=== PATIENT | female | born 1980 | race Caucasian/White ===

== ENCOUNTER 2017-03-06 13:02 | Emergency (ER) | payer MEDICARE, OTHER, SELFPAY ==
[2017-03-06 14:18] LABS: UTC Influenza A Antigen Negative (Negative); UTC Influenza B Antigen Negative (Negative)
[2017-03-06 14:24] VITALS: BP 121/61; PULSE 78; RESP 20; TEMP 36.9; O2SAT 100; BMI 21.7
--- NOTE | 2017-03-06 14:41 | HMH.EDUTC ---
[facility] [place] Impression: Viral upper respiratory tract infection with cough Disposition: Home, Self-Care Condition on Discharge: Good Instructions: Common Cold, DI for Viral Upper Respiratory Infection -- Adult Additional Instructions: * Monitor Temp. Tylenol and/or Ibuprofen as needed. ER if fever is no less than 101 despite alternating Tylenol and Ibuprofen * Encourage fluids, water, Gatorade, powerade, pedialyte if infant/toddler/or child * Warm salt water gargles for throat irritation *Warm fluids *Sore throat lozenges *Sleep elevated *humidifier or vaporizer Lots of rest Increase fluids, water, Gatorade, powerade Follow up IMMEDIATELY for new or worsening of symptoms OR no noticeable improvement over the next 48-72 hours. 911 immediately for any life threatening symptoms such as chest pain or difficulty breathing Referrals: Ilia Sutton MD [Primary Care Provider] - Time of Disposition: 14:57 Medical Decision Making - Medical Records Medical records reviewed: Yes: I reviewed the patient's medical records. Vital Signs: 03/06/17 14:24 Temperature 98.4 F Temperature Source Temporal Artery Scan Pulse Rate [Right Brachial] 78 Respiratory Rate 20 Blood Pressure [Right Arm] 121/61 Blood Pressure Mean [Right Arm] 81 Blood Pressure Source [Right Arm] Automatic Cuff Blood Pressure Position [Right Arm] Sitting 02 Sat by Pulse Oximetry 100 Oxygen Delivery Method Room Air - Lab Data Lab Results 03/06/17 14:08: Influenza Type A Ag Negative, Influenza Type B Ag Negative - Herber Inquiry Pt receiving controlled substance: No Herber was queried for this patient: No [facility] [place] - General Stated complaint: fever cough Mode of Arrival: Family Vehicle Source of Information: Patient Limitations: No Limitations Description of Symptoms (Recalled from Triage Doc. by RN): PT HAS HAD COUGH,FEVER, CONGESTION. PT HAD LIQUID ASPIRIN AT 1100. HEENT Symptoms (Recalled from RN notes): No Resp Symptoms (Recalled from RN notes): Yes (COUGH, CONGESTION) Skin Symptoms (Recalled from RN notes): No MS Symptoms (Recalled from RN notes): No Functional Status (Recalled from RN notes): NA - History of Present Illness Provider Complaint: Mother states that child has been having fever and cough now since yesterday State that family member recently tested positive for the flu. State that she was worried with the upcoming weather that she would be flu positive and she could not get her here State that she has had low grade fever and she was afraid because she had a history of febrile seziures when she was younger and has a history of seizures so she wanted to get her checked for the flu - Related Data Home Medications Medication Instructions Recorded Confirmed Zonisamide [Zonisamide] 100 mg PO TID 03/06/17 03/06/17 Allergies Allergy/AdvReac Type Severity Reaction Status Date / Time No Known Allergies Allergy Verified 03/06/17 13:54 - Worker's Comp Is this a Worker's Comp case?: No [facility] History I have reviewed the patient's past medical history: Yes Medical History: Denies:: Cancer, Diabetes Mellitus Type 1, Diabetes Mellitus Type 2, MRSA Amputation: No - *Social History Smoking Status: Never smoker Alcohol Intake: never - Psychiatric History Expresses thoughts of harming self/others: None Suicide Plan Description: No Plan ROS Obtained: Yes All systems reviewed & no additional complaints - Constitutional Constitutional: Reports fever(s) - Respiratory Respiratory: Yes cough Physical Exam - General General appearance: alert, in no apparent distress - Expanded ENT Exam Comment: Throat mildly red, irritated no exudate - Respiratory Respiratory exam: Present: normal lung sounds bilaterally. Absent: respiratory distress - Cardiovascular Cardiovascular exam: Present: regular rate - Neurological Exam Neurological exam: Present: alert, oriented X3
--- NOTE | 2017-03-06 14:44 | ED_ITS ---
[facility] [place] [facility] [place] Clinical Impression: Viral upper respiratory tract infection with cough Disposition: Home, Self-Care Condition on Discharge: Good Instructions: Common Cold, DI for Viral Upper Respiratory Infection -- Adult Additional Instructions: * Monitor Temp. Tylenol and/or Ibuprofen as needed. ER if fever is no less than 101 despite alternating Tylenol and Ibuprofen * Encourage fluids, water, Gatorade, powerade, pedialyte if infant/toddler/or child * Warm salt water gargles for throat irritation *Warm fluids *Sore throat lozenges *Sleep elevated *humidifier or vaporizer Lots of rest Increase fluids, water, Gatorade, powerade Follow up IMMEDIATELY for new or worsening of symptoms OR no noticeable improvement over the next 48-72 hours. 911 immediately for any life threatening symptoms such as chest pain or difficulty breathing Referrals: Ilia Sutton MD [Primary Care Provider] - Time of Disposition: 14:57 Medical Decision Making - Medical Records Medical records reviewed: Yes: I reviewed the patient's medical records. Vital Signs: 03/06/17 14:24 Temperature 98.4 F Temperature Source Temporal Artery Scan Pulse Rate [Right Brachial] 78 Respiratory Rate 20 Blood Pressure [Right Arm] 121/61 Blood Pressure Mean [Right Arm] 81 Blood Pressure Source [Right Arm] Automatic Cuff Blood Pressure Position [Right Arm] Sitting 02 Sat by Pulse Oximetry 100 Oxygen Delivery Method Room Air - Lab Data Lab Results 03/06/17 14:08: Influenza Type A Ag Negative, Influenza Type B Ag Negative - Herber Inquiry Pt receiving controlled substance: No Herber was queried for this patient: No [facility] [facility] [place] - General Stated complaint: fever cough Mode of Arrival: Family Vehicle Source of Information: Patient Limitations: No Limitations Description of Symptoms (Recalled from Triage Doc. by RN): PT HAS HAD COUGH, FEVER, CONGESTION. PT HAD LIQUID ASPIRIN AT 1100. HEENT Symptoms (Recalled from RN notes): No Resp Symptoms (Recalled from RN notes): Yes (COUGH, CONGESTION) Skin Symptoms (Recalled from RN notes): No MS Symptoms (Recalled from RN notes): No Functional Status (Recalled from RN notes): NA - History of Present Illness Provider Complaint: Mother states that child has been having fever and cough now since yesterday State that family member recently tested positive for the flu. State that she was worried with the upcoming weather that she would be flu positive and she could not get her here State that she has had low grade fever and she was afraid because she had a history of febrile seziures when she was younger and has a history of seizures so she wanted to get her checked for the flu - Related Data Home Medications Medication Instructions Recorded Confirmed Zonisamide [Zonisamide] 100 mg PO TID 03/06/17 03/06/17 Allergies Allergy/AdvReac Type Severity Reaction Status Date / Time No Known Allergies Allergy Verified 03/06/17 13:54 - Worker's Comp Is this a Worker's Comp case?: No [facility] History I have reviewed the patient's past medical history: Yes Medical History: Denies:: Cancer, Diabetes Mellitus Type 1, Diabetes Mellitus Type 2, MRSA Amputation: No - *Social History Smoking Status: Never smoker Alcohol Intake: never - Psychiatric History Expresses thoughts of harming self/others: None Suicide Plan
== END 2017-03-06 15:14 | disposition home or self-care (01) ==
PROVIDERS: Emergency Provider Nurse Practitioner; PCP Family Medicine
DX: J06.9 Acute upper respiratory infection, unspecified (principal); Z79.899 Other long term (current) drug therapy
CPT/HCPCS: 87804; 99201

== ENCOUNTER → 2021-01-06 08:53 | Outpatient (CLI) | payer MEDICARE, OTHER, SELFPAY ==
[2021-01-06 09:49] LABS: Basophils # 0.1 K/mm3 (0-0.2); Basophils % 0.8 % (0.1-2.0); Eosinophils # 0.1 K/mm3 (0.0-0.4); Eosinophils % 0.9 % (0.1-12.0); Hematocrit 42.5 % (37.0-47.0); Hemoglobin 14.3 g/dL (12.2-16.2); Lymphocytes # 2.9 K/mm3 (0.7-4.5); Lymphocytes % 37.2 % (10-50); Mean Corpuscular HGB Conc 33.5 g/dL (31.8-35.4); Mean Corpuscular Hemoglobin 31.7 pg (27.0-31.2); Mean Corpuscular Volume 94.6 fl (81-99); Mean Platelet Volume 8.2 fl (7.4-10.4); Monocytes # 0.4 K/mm3 (0.1-1.0); Monocytes % 4.8 % (1.7-9.3); Neutrophils # 4.4 K/mm3 (1.8-7.8); Neutrophils % 56.3 % (37.0-80.0); Platelet Count 225 K/mm3 (142-424); Red Cell Distribution Width 12.2 % (11.5-17.5); White Blood Count 7.9 K/mm3 (4.8-10.8)
[2021-01-06 11:04] LABS: Alanine Aminotransferase 10 U/L (12-78); Albumin Level 4.5 g/dl (3.5-5.0); Albumin/Globulin Ratio 1.5 (1.1-1.8); Alkaline Phosphatase 64 U/L (38-126); Anion Gap 12.3 mEq/L (5-15); Aspartate Amino Transferase 20 U/L (14-36); Bilirubin,Total 0.3 mg/dl (0.2-1.3); Blood Urea Nitrogen 17 mg/dl (7-17); Calcium 9.7 mg/dl (8.4-10.2); Carbon Dioxide 25 mmol/L (22.0-30.0); Chloride 106 mmol/L (98-107); Cholesterol 222 mg/dl (140-200); Estimated Glomerular Filt Rate 62 ml/min (>60); GFR (African American) 75 ML/MIN (>60); Globulin 3.1 g/dL (1.3-3.2); Glucose 107 mg/dl (74-100); HDL Cholesterol 74 mg/dl (40-60); Potassium 4.3 mmoL/L (3.5-5.1); Sodium 139 mmol/L (136-145); Total Protein,Serum 7.6 g/dl (6.3-8.2); Triglycerides 159 mg/dl (30-150); VLDL Cholesterol 32 mg/dL (0-40)
[2021-01-06 11:15] LABS: Direct LDL Cholesterol 124.53 mg/dL (100-129)
[2021-01-06 11:20] LABS: 25-OH Vitamin D, Total 47.6 ng/mL (30-100)
[2021-01-06 11:35] LABS: Thyroid Stimulating Hormone 4.13 uIU/mL (0.465-4.68)
[2021-01-06 12:09] LABS: Vitamin B12 525 pg/mL (239-931)
[2021-01-06 12:19] LABS: Folate > 20.00 ng/mL
== END ==
PROVIDERS: Visit Provider Psychiatry & Neurology Neurology
DX: G40.219 Localization-related (focal) (partial) symptomatic epilepsy and epileptic syndromes with complex partial seizures, intractable, without status epilepticus (principal); R62.50 Unspecified lack of expected normal physiological development in childhood; R46.89 Other symptoms and signs involving appearance and behavior; Z79.899 Other long term (current) drug therapy
CPT/HCPCS: 36415; 80053; 80061; 82306; 82607; 82746; 84443; 85025

== ENCOUNTER 2021-12-11 10:13 | Emergency (ER) | payer MEDICARE, OTHER, SELFPAY ==
[2021-12-11 10:40] VITALS: BP 120/61; PULSE 102; RESP 16; TEMP 37.4; O2SAT 98; BMI 24.2
--- NOTE | 2021-12-11 10:43 | EXP.UTC ---
Discharge Plan Disposition Patient Disposition: Home, Self-Care Condition: Good Prescriptions Prescriptions: New azithromycin [Zithromax] 250 mg tablet 250 mg PO UD DOSE PK Qty: 6 0RF Rx Instructions: Take two (2) tablets today, then one (1) tablet days #2 thru #5 guaifenesin [Mucinex] 600 mg tablet extended release 12hr 600 - 1,200 mg PO BIDP PRN (Reason: Congestion) Qty: 30 0RF No Action zonisamide 100 MG capsule 100 mg PO TID Label Comments: Referrals Follow up/Referrals: Provider,Referral, MD [Primary Care Provider] - See instructions Clinical Impressions Clinical Impression: Sinusitis, Close exposure to COVID-19 virus Instructions Patient Instructions: Sinusitis, DI for Sinusitis, Preventing the Spread of Coronavirus Discharge Instructions Discharge ED Provider: Jesus Wagner [facility] [place] General Stated complaint: fever, congestion covid test Mode of Arrival: Ambulatory Source of Information: Patient Limitations: No Limitations Time Seen by Provider: 12/11/21 10:43 Description of Symptoms (Recalled from Triage Doc. by RN): pt comes in with c/o fever and congestion. symptoms ongoing for 2 days, last night symptoms got worse HEENT Symptoms (Recalled from RN notes): Yes Resp Symptoms (Recalled from RN notes): Yes Skin Symptoms (Recalled from RN notes): No MS Symptoms (Recalled from RN notes): No Functional Status (Recalled from RN notes): n/a History of Present Illness Provider Complaint: This patient is autistic. Her mother states that the patient has had sinus congestion, runny nose, sore throat and low grade fever since yesterday. Her father currently has covid-19 at home. Related Data Home Medications Medication Instructions Recorded Confirmed zonisamide 100 mg capsule 100 mg PO TID SEIZURES 03/06/17 03/06/17 Previous Rx's Medication Instructions Recorded azithromycin 250 mg tablet 250 mg PO UD DOSE PK #6 tabs 12/11/21 (Zithromax) guaifenesin 600 mg tablet, 600 - 1,200 mg PO BIDP PRN 12/11/21 extended release 12 hr (Mucinex) Congestion #30 tabs Allergies Allergy/AdvReac Type Severity Reaction Status Date / Time No Known Allergies Allergy Verified 12/11/21 10:43 Worker's Comp Is this a Worker's Comp case?: No PFSH PFSH Social History Smoking Status: Never smoker alcohol intake: never current occupational status: employed Travel in the last 8 weeks: None ROS Obtained: Yes All systems reviewed & no additional complaints except as documented Constitutional Constitutional: Reports chills and Reports fever(s) Eyes Eyes: Denies eye discharge ENT Ears, Nose, Mouth, and Throat: Reports as per HPI Cardiovascular Cardiovascular: Denies chest pain Respiratory Respiratory: Denies chest congestion and Reports cough Gastrointestinal Gastrointestingal: Reports nausea; Denies abdominal pain, constipation, cramping, diarrhea or vomiting Musculoskeletal Musculoskeletal: Denies arthralgias Integumentary/Breasts Skin/Breast: Denies rash Neurologic Neurologic: Denies paresthesias Physical Exam General General appearance: alert and in no apparent distress Head Head exam: atraumatic, normocephalic and normal inspection Eye Eye exam: Present normal appearance, PERRL and EOMI ENT ENT exam: Present normal exam, normal oropharynx, mucous membranes moist, TM's normal bilaterally and normal external ear exam Neck Neck exam: Present normal inspection, full ROM and trachea midline; Absent meningismus or lymphadenopathy Chest Chest inspection: Present normal inspection and symmetric chest wall rise; Absent tenderness Respiratory Respiratory exam: Present normal lung sounds bilaterally; Absent respiratory distress Cardiovascular Cardiovascular exam: Present regular rate and normal rhythm; Absent JVD Abdominal Exam Abdominal exam: Present soft and normal bowel sounds; Absent distention, tenderness or guarding Ex
[2021-12-11 11:20] VITALS: BP 120/61; PULSE 102; RESP 16; TEMP 37.4
== END 2021-12-11 11:24 | disposition home or self-care (01) ==
PROVIDERS: Emergency Provider Nurse Practitioner Family
DX: U07.1 COVID-19 (principal); R50.9 Fever, unspecified; R11.0 Nausea; R09.89 Other specified symptoms and signs involving the circulatory and respiratory systems
CPT/HCPCS: 99213; C9803; G0463; U0003; U0005

== ENCOUNTER 2022-02-02 11:51 | Emergency (ER) | payer MEDICARE, OTHER, SELFPAY ==
--- NOTE | 2022-02-02 13:38 | EXP.UTC ---
Discharge Plan Disposition Patient Disposition: Home, Self-Care Condition: Good Prescriptions Prescriptions: New ibuprofen [ibuprofen] 600 mg tablet 600 mg PO Q6HP PRN (Reason: Mild Pain) Qty: 30 0RF No Action azithromycin [Zithromax] 250 mg tablet 250 mg PO UD DOSE PK Qty: 6 0RF Rx Instructions: Take two (2) tablets today, then one (1) tablet days #2 thru #5 guaifenesin [Mucinex] 600 mg tablet extended release 12hr 600 - 1,200 mg PO BIDP PRN (Reason: Congestion) Qty: 30 0RF zonisamide 100 MG capsule 100 mg PO TID Label Comments: Referrals Follow up/Referrals: Yovani Riggs JR, MD [Physician] - See instructions Provider,MD Mary [Primary Care Provider] - See instructions Activity Restrictions/Add. Instructions Additional Instructions/Restrictions: Rest the extremity, Elevate the extremity as tolerated while you are resting. Take ibuprofen for pain. I sent in a prescription to your pharmacy. Follow up with Dr. Riggs (orthopedics). I put in a referral but you need to call his office and schedule an appointment. Follow up with your regular doctor. GO TO THE ER FOR ANY WORSENING SYMPTOMS Clinical Impressions Clinical Impression: Left leg pain Instructions Patient Instructions: DI for Leg Pain Discharge ED Provider: Jesus Wagner [facility] General Stated complaint: AO 01/26@home pain in Rt leg Time Seen by Provider: 02/02/22 13:38 History of Present Illness Provider Complaint: Her mother states that the patient has c/o right leg pain since yesterday. The patient has autism and she has been unable to tell exactly where she is hurting at. There is no known injury, but the patient is very active. She was chasing chickens before her symptoms began. She is walking well on the extremity. Related Data Home Medications Medication Instructions Recorded Confirmed zonisamide 100 mg capsule 100 mg PO TID SEIZURES 03/06/17 03/06/17 Previous Rx's Medication Instructions Recorded azithromycin 250 mg tablet 250 mg PO UD DOSE PK #6 tabs 12/11/21 (Zithromax) guaifenesin 600 mg tablet, 600 - 1,200 mg PO BIDP PRN 12/11/21 extended release 12 hr (Mucinex) Congestion #30 tabs ibuprofen 600 mg tablet 600 mg PO Q6HP PRN Mild Pain #30 02/02/22 tabs Allergies Allergy/AdvReac Type Severity Reaction Status Date / Time No Known Allergies Allergy Verified 02/02/22 13:41 [facility] Disclaimer: The information contained in this section may have been updated after the patient was seen, as this information can be updated by other users. Social History Smoking Status: Never smoker alcohol intake: never current occupational status: employed Travel in the last 8 weeks: None ROS Obtained: Yes All systems reviewed & no additional complaints except as documented Constitutional Constitutional: Denies chills and Denies fever(s) Integumentary/Breasts Skin/Breast: Denies redness, Denies rash and Denies wounds Neurologic Neurologic: Denies paresthesias Physical Exam General General appearance: alert and in no apparent distress Head Head exam: atraumatic, normocephalic and normal inspection Eye Eye exam: Present normal appearance, PERRL and EOMI ENT ENT exam: Present normal exam, normal oropharynx, mucous membranes moist, TM's normal bilaterally and normal external ear exam Neck Neck exam: Present normal inspection, full ROM and trachea midline; Absent meningismus or lymphadenopathy Chest Chest inspection: Present normal inspection and symmetric chest wall rise; Absent tenderness Respiratory Respiratory exam: Present normal lung sounds bilaterally; Absent respiratory distress Cardiovascular Cardiovascular exam: Present regular rate and normal rhythm; Absent JVD Abdominal Exam Abdominal exam: Present soft and normal bowel sounds; Absent distention, tenderness or guarding Extremities Exam Extremities ex
[2022-02-02 13:39] VITALS: BP 115/65; PULSE 65; RESP 16; TEMP 36.7; O2SAT 99; BMI 21.7
--- NOTE | 2022-02-02 13:41 | XR_ITS ---
FINAL REPORT CLINICAL HISTORY: pain in right thigh FINDINGS: RIGHT HIP WITH PELVIS There is no acute fracture or dislocation. The joint spaces are intact. There are no soft tissue abnormalities. IMPRESSION: No acute process. Reviewed, Interpreted and Dictated by Dominic Christina III, MD Transcribed by Urban Zhang Authenticated and [facility]
--- NOTE | 2022-02-02 13:42 | XR_ITS ---
FINAL REPORT CLINICAL HISTORY: pain in right thigh FINDINGS: RIGHT ANKLE: Three views of the right ankle were obtained. There is no acute fracture or dislocation. The joint spaces and mortise are intact. There is a small chronic calcification superior to the navicular. IMPRESSION: No acute process. Reviewed, Interpreted and Dictated by Dominic Christina III, MD Transcribed by Urban Zhang Authenticated and [facility]
--- NOTE | 2022-02-02 13:42 | XR_ITS ---
FINAL REPORT CLINICAL HISTORY: pain in right thigh FINDINGS: Two views of the right tibia-fibula demonstrate no acute fracture or dislocation. The joint spaces appear normal. The visualized bony structures are well aligned. No soft tissue abnormality is seen. IMPRESSION: No acute process. Reviewed, Interpreted and Dictated by Dominic Christina III, MD Transcribed by Urban Zhang Authenticated and . [facility]
--- NOTE | 2022-02-02 13:42 | XR_ITS ---
FINAL REPORT CLINICAL HISTORY: pain in right thigh FINDINGS: 3 views of the right foot were obtained. There is no acute fracture or dislocation. There is mild hallux valgus deformity. The joint spaces are intact. There is a small chronic calcification superior to the navicular. IMPRESSION: No acute process. Reviewed, Interpreted and Dictated by Dominic Christina III, MD Transcribed by Urban Zhang Authenticated and [facility]
--- NOTE | 2022-02-02 13:42 | XR_ITS ---
FINAL REPORT CLINICAL HISTORY: pain in right thigh FINDINGS: Multiple views of the right femur were obtained. There is no acute fracture or dislocation. Visualized joint spaces are intact. There is no acute soft tissue abnormality. IMPRESSION: No acute process. Reviewed, Interpreted and Dictated by Dominic Christina III, MD Transcribed by Urban Zhang Authenticated and [facility]
--- NOTE | 2022-02-02 13:52 | XR_ITS ---
FINAL REPORT CLINICAL HISTORY: injury, pain in right thigh FINDINGS: Three views of the right knee reveal no evidence of fracture or dislocation. The bony alignment is normal. The joint spaces are preserved. There is no evidence of joint effusion. No localized soft tissue abnormality is identified. IMPRESSION: No acute abnormality identified. Reviewed, Interpreted and Dictated by Dominic Christina III, MD Transcribed by An Ramirez Authenticated and [facility]
[2022-02-02 14:57] VITALS: BP 115/65; PULSE 65; RESP 16; TEMP 36.7
== END 2022-02-02 14:58 | disposition home or self-care (01) ==
PROVIDERS: Emergency Provider Nurse Practitioner Family
DX: M79.604 Pain in right leg
CPT/HCPCS: 73502; 73552; 73562; 73590; 73610; 73630; 99213; G0463

== ENCOUNTER 2024-03-06 14:35 | Outpatient (CLI) | payer MEDICARE, OTHER, SELFPAY ==
[2024-03-06 15:05] LABS: MANUAL DIFFERENTIAL MANUAL DIFFERENTIAL (MANUAL DIFF)
--- NOTE | 2024-03-06 15:07 | XR_ITS ---
FINAL REPORT CLINICAL HISTORY: Ankle pain COMPARISON: None FINDINGS: RIGHT ANKLE: Three views show no evidence of acute displaced fracture or dislocation of the visualized bony architecture. The joint spaces appear normal. IMPRESSION: Unremarkable exam. Reviewed, Interpreted and Dictated by Lotus Sneed MD Transcribed by Maria Del Carmen Smith Authenticated and [facility]
[2024-03-06 15:29] LABS: Basophils % 0.4 % (0.1-2.0); Eosinophils # 0.1 K/mm3 (0.0-0.4); Eosinophils % 0.8 % (0.1-12.0); Hematocrit 39.7 % (37.0-47.0); Hemoglobin 13.2 g/dL (12.2-16.2); Lymphocytes # 2.1 K/mm3 (0.7-4.5); Lymphocytes % 28.5 % (10-50); Mean Corpuscular HGB Conc 33.2 g/dL (31.8-35.4); Mean Corpuscular Hemoglobin 30.5 pg (27.0-31.2); Mean Corpuscular Volume 91.7 fl (81-99); Monocytes # 0.6 K/mm3 (0.1-1.0); Monocytes % 7.7 % (1.7-9.3); Neutrophils # 4.6 K/mm3 (1.8-7.8); Neutrophils % 62.3 % (37.0-80.0); Platelet Count 147 K/mm3 (142-424); Red Blood Count 4.33 M/mm3 (4.20-5.40); Red Cell Distribution Width 12.1 % (11.5-17.5); White Blood Count 7.3 K/mm3 (4.8-10.8)
[2024-03-06 15:44] LABS: Albumin Level 4.6 g/dl (3.5-5.0); Chloride 109 mmol/L (98-107); Potassium 4.4 mmoL/L (3.5-5.1); Sodium 140 mmol/L (136-145)
[2024-03-06 15:47] LABS: Alanine Aminotransferase 14 U/L (12-78); Albumin/Globulin Ratio 1.5 (1.1-1.8); Alkaline Phosphatase 60 U/L (38-126); Anion Gap 12.4 mEq/L (5-15); Aspartate Amino Transferase 21 U/L (14-36); Bilirubin,Total 0.4 mg/dl (0.2-1.3); Blood Urea Nitrogen 15 mg/dl (7-17); Calcium 9.7 mg/dl (8.4-10.2); Carbon Dioxide 23 mmol/L (22.0-30.0); Estimated Glomerular Filt Rate 79 ml/min (>60); GFR (African American) 95 ML/MIN (>60); Glucose 118 mg/dl (74-100); Total Protein,Serum 7.6 g/dl (6.3-8.2)
[2024-03-06 16:06] LABS: Lymphocytes % 37 % (10-50); Monocytes % 3 % (2-9); Neutrophils % 59 % (42-76); Platelet Estimate Normal; RBC Morphology Normal; Total Cells Counted 100
== END 2024-03-06 23:59 | disposition home or self-care (01) ==
LOC: LAB 14:38
PROVIDERS: PCP Family Medicine; Visit Provider Specialist
DX: R56.9 Unspecified convulsions (principal); M25.571 Pain in right ankle and joints of right foot
CPT/HCPCS: 36415; 73610; 80053; 80203; 85007; 85014; 85018; 85048; 85049

== ENCOUNTER 2024-03-08 11:07 | Outpatient (CLI) | payer MEDICARE, OTHER, SELFPAY ==
[2024-03-11 20:08] LABS: Zonisamide, Serum or Plasma 29.5 ug/mL (10.0-40.0)
== END 2024-03-08 23:59 | disposition home or self-care (01) ==
PROVIDERS: PCP Family Medicine; Visit Provider Specialist
DX: R56.9 Unspecified convulsions (principal)
CPT/HCPCS: 80203

== ENCOUNTER 2024-03-19 12:41 | Outpatient (CLI) | payer MEDICARE, OTHER, SELFPAY ==
--- NOTE | 2024-03-19 12:42 | MR_ITS ---
FINAL REPORT CLINICAL HISTORY: h/o Seizure FINDINGS: Multiplanar MR imaging of the brain was performed without and with contrast. There is no evidence of intracranial hemorrhage or mass. No abnormal extra-axial fluid collection is seen. The ventricular size is within normal limits. There is no evidence of shift of the midline structures. The posterior fossa and brainstem have an unremarkable appearance. The 7th and 8th nerve root complexes are intact. No area of abnormal restricted diffusion is identified. No abnormal contrast enhancement is seen. The paranasal sinuses demonstrate normal signal voids. IMPRESSION: No acute intracranial abnormality identified. Reviewed, Interpreted and Dictated by Eliot Gnadhi MD Transcribed by Ariane Torrez Authenticated and [facility]
[2024-03-19] MEDS: SODIUM CHLORIDE 0.9% 10ML SYR (RAD ONLY) 10 ML IV (13:55)
[2024-03-19] MEDS: GADOTERIDOL INJ 10ML SYRINGE 10 ML IV (13:55)
== END 2024-03-19 23:59 | disposition home or self-care (01) ==
LOC: RAD 12:42
PROVIDERS: PCP Family Medicine; Visit Provider Specialist
DX: R56.9 Unspecified convulsions (principal)
CPT/HCPCS: 70553; A9576

== ENCOUNTER 2024-06-27 11:27 | Emergency (ER) | payer MEDICARE, OTHER, SELFPAY ==
[2024-06-27] VITALS (8 sets, daily range): BP systolic 92–121; BP diastolic 65–88; PULSE 66–86; RESP 14–17; TEMP 36.9–37.1; O2SAT 96–99; BMI 24.2
--- NOTE | 2024-06-27 11:32 | ECG_ITS ---
APPROVED REPORT Exam: Resting ECG HR:81 bpm ECG Measurements Heart Rate 81 AXES DC 151 P 70 QRSd 97 QRS 82 QT 349 T -24 QTc 387 Conclusion SINUS RHYTHM WITH SINUS ARRHYTHMIA MODERATE T-WAVE ABNORMALITY, CONSIDER ANTEROLATERAL ISCHEMIA [-0.1+ mV T-WAVE IN V3-V6] MODERATE T-WAVE ABNORMALITY, CONSIDER INFERIOR ISCHEMIA [-0.1+ mV T-WAVE IN II/aVF] No acute STEMI Electronically signed by : LISETTE BARRIENTOS, 06/28/2024 09:55:52
--- OUTSIDE RECORDS SUMMARY | 2024-06-27 11:51 | XMS_ITS | Data Portability ---
Author Organization [facility] & [facility] ADMIN Address [address] [place] [id number] Assessment No assessment recorded. Plan of Treatment Reminders Order Date Submit Date Provider Last Modified By Organization Details Last Modified Time Details Appointments None recorded. Lab None recorded. Referral None recorded. Procedures None recorded. Surgeries None recorded. Imaging None recorded. Medication Orders zonisamide 100 mg capsule [address] [place] [address], [address] [place] [address], [address], [place], [address], 10:19:04 Patient TargetsNo targets recorded. Patient InstructionsNo instructions recorded. Reason for Referral None Reported. 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 Medical Equipment None Reported. Allergies No known drug allergies Medications Name Sig Start Date Stop Date Status Note LastModified by Organization Details LastModified Time zonisamide 100 mg capsule TAKE 4 CAPSULES BY MOUTH ONCE DAILY 023 active Not Available Not Available Not Avai lable Vitals Date Recorded Body height Body mass index (BMI) Body weight Heart rate Systolic blood pressure Diastolic blood pressure Provider Name and Address Organization Details Last Updated DateTime 3 170.18 cm 22.1 kg/m2 73360.5 2 g 79 /min 127 mm[Hg] 74 mm[Hg] Collette RONDON [facility] & [place] 3 09:50:00 Date Recorded Body height Body mass index (BMI) Body weight Heart rate Systolic blood pressure Diastolic blood pressure Provider Name and Address Organization Details Last Updated DateTime 2 170.18 cm 21.7 kg/m2 50580.6 2 g 50 /min 107 mm[Hg] 70 mm[Hg] Collette RONDON [facility] & [place] 2 09:57:18 Social History Question Answer Notes LastModified by [employer] Details LastModified Time Tobacco Smoking Status Never Smoker Lily Gutierrez DO [address] [facility], [place], [address], [facility] & [place] 12/26/2021 14:51:16 What Is Your Level Of Alcohol Consumption? None [email or web address] Information not available 12/26/2021 What Is Your Level Of Caffeine Consumption? Occasional [email or web address] Information not available 12/26/2021 Are You Currently Employed? No Disabled Information not available 12/28/2022 What Is Your Relationship Status? Single Lives With Parents, House Information not available 12/26/2021 Do You Use Any Illicit Or Recreational Drugs? No [email or web address] Information not available 12/26/2021 Are You Currently In School? No Information not available 12/29/2021 Sex: Unknown Functional Status Question Answer Note LastModified by [employer] Details LastModified Time Do you have transportation difficulties? Yes does not drive Information not available 12/29/2021 Are you able to care for yourself? No Information n ot available 12/29/2021 Mental Status None recorded. Family History Relationship Description Onset Age of this Age Resolved Age Notes LastModified by Organization Details LastModified Time Father No current problems or disability Not available 12/26 14:50:46 Mother No current problems or disability [email or web address] Not available 12/26 14:50:46 Brother No current problems or disability ldalla Not available 12/28 08:19:23 Brother No current problems or disability ldalla Not available 12/28 08:19:26 Brother No current problems or disability ldalla Not available 12/28 08:19:29 Sister No current problems or disability ldalla Not available 12/28 08:19:34 Medical History Condition Response Developmental Delay Y Seizures/Epilepsy Y Gynecological HistoryNo gynecological history recorded. 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 She needs refills today. She has good supervisio n and her mother keeps her active working outside whenever the weather allows. No new safety concerns identified today. 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 Laila continues to do well on zonisamide . She does not need refills today. She has good supervisio n and her mother keeps her active working outside whenever the weather allows. No new safety concerns identified today. Developmental delay 2482 70486 R62.50 She does not have a PCP and not had any labs checked in several years. I offered to do some basic labs today but they declined. I encouraged her mother to get her establishe d with a PCP for wellness exam and labs. Her mother is a patient of Dr Sutton so that would be a good option for her to get Laila gorman with. Health Concerns Section Related Observation LastModified by Organization Phyllis hatfield LastModified Time None Recorded Concern Status LastModified by Organization Details LastModified Time None Recorded Advance Directives Directive None Recorded Payers Insurance Date Sequence Insurance Name Policy Number Policy Hudson Covered Member ID Hudson Member ID Guarantor Name 12/25/2022 1 [place] Laila Car [id number] 12/25/2022 2 [employer] [facility] (MEDICAID HMO) Laila Car [id number] Notes Date Note Type Note Provider Name and Address Organization Details Recorded Time 12/29/2021 text/html Laila comes in for annual follow up on her seizure disorder. She was last seen 12/30/20.She is accompanied by her mother and sister who provides all the history for today's visit. She has been on zonisamide for many years with good results. Last year her mother had reported some increased staring so I did increase her dose from 400mg daily to 500mg daily. Today her mother reports this increase seemed to worsen the staring so she backed her down to 400mg daily.Overall she has had a very stable year. She has not had any major issues that required hospital or ER visits. She did get COVID about a month ago. She had mild symptoms and she has recovered nicely. Her mother saw no increase in staring or seizures while she was sick.She is very compliant with her zonisamide. It is a capsule and her mother will put it in boost and Laila drinks her medication.She sleeps fairly well. She tends to want to stay up late and sleep in to 10am.Her mother reports she has a good appetite.She does like to help her mother do chores at home. She helps with mowing yards with her family when the weather is nice. 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 Lily Gutierrez, DO [address], [place], [address], [facility] - [place] - [place] & [place] 12/29/2021 10:58:36 12/28/2022 text/html Laila comes in for a routine follow up on her epilepsy. She is on zonisamide. She is accompanied by her mother who helps supplement the history. She reports no seizures. There has been no issue with her medication. She is very compliant. She takes her medication every night. She uses a weekly pill box and has no issues with missed dosages.She has been sleeping well. Her appetite is good. 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 She has taken in some stray cats that she likes to take care of. PRIOR VISIT: (12/29/21)Laila comes in for annual follow up on her seizure disorder. She was last seen 12/30/20.She is accompanied by her mother and sister who provides all the history for today's visit. She has been on zonisamide for many years with good results. Last year her mother had reported some increased staring so I did increase her dose from 400mg daily to 500mg daily. Today her mother reports this increase seemed to worsen the staring so she backed her down to 400mg daily.Overall she has had a very stable year. She has not had any major issues that required hospital or ER visits. She did get COVID about a month ago. She had mild symptoms and she has recovered nicely. Her mother saw no increase in staring or seizures while she was sick.She is very compliant with her zonisamide. It is a capsule and her mother will put it in boost and Laila drinks her medication.She sleeps fairly well. She tends to want to stay up late and sleep in to 10am.Her mother reports she has a good appetite.She does like to help her mother do chores at home. She helps with mowing yards with her family when the weather is nice. 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 Lily Gutierrez DO [address], [place], [address], [place] [facility] - [place] & [place] 12/28/2022 10:18:34 OBGyn Episode No OBEpisode recorded.
--- NOTE | 2024-06-27 12:16 | CT_ITS ---
FINAL REPORT TECHNIQUE: Thin section axial images were obtained from skull base to vertex without contrast. Coronal reconstruction images were obtained from the axial data. Exam was performed using dose reduction techniques such as automated exposure control, adjustment of the mA and kV according to patient size, and use of iterative reconstruction technique. CLINICAL HISTORY: fall with head/facial injury COMPARISON: None FINDINGS: There is no mass effect or midline shift. There is no hydrocephalus. There is no intracranial hemorrhage. The posterior fossa is without acute abnormality. The basilar cisterns are preserved. The soft tissues are without acute abnormality. No acute osseous abnormality is identified. IMPRESSION: No acute intracranial abnormality. Reviewed, Interpreted and Dictated by Gypsy Lopez MD Transcribed by Mirella Kilpatrick Authenticated and [facility]
--- NOTE | 2024-06-27 12:16 | CT_ITS ---
FINAL REPORT TECHNIQUE: Thin section axial images were obtained through the cervical spine without contrast. Multiplanar reconstruction images were obtained from the axial data. Exam was performed using dose reduction techniques. CLINICAL HISTORY: fall with head/facial injury COMPARISON: None FINDINGS: There is no acute fracture or acute malalignment of the cervical spine. There is no evidence of unilateral or bilateral facet lock. Vertebral body height is preserved. Craniocervical junction is intact. There is mild degenerative disc disease. No acute paraspinal abnormality is identified. IMPRESSION: No acute osseous abnormality of the cervical spine. Reviewed, Interpreted and Dictated by Gypsy Lopez MD Transcribed by Mirella Kilpatrick Authenticated and [facility]
--- NOTE | 2024-06-27 12:16 | CT_ITS ---
FINAL REPORT TECHNIQUE: Thin section axial images were obtained through the face without contrast. Coronal reconstruction images are obtained from the axial data. Exam was performed using dose reduction techniques such as automated exposure control, adjustment of the mA and kV according to patient size, and use of iterative reconstruction technique. CLINICAL HISTORY: fall with head/facial injury COMPARISON: None FINDINGS: There is no acute facial bone fracture. The paranasal sinuses are clear. There is periapical lucency surrounding and anterior most left maxillary incisor. Periapical abscess is not excluded. Mastoid air cells are clear. Remaining soft tissues are without acute abnormality. IMPRESSION: No acute facial fracture. Periapical lucency surrounding anterior left maxillary molar could represent periapical abscess. Reviewed, Interpreted and Dictated by Gypsy Lopez MD Transcribed by Mirella Kilpatrick Authenticated and [facility]
[2024-06-27 12:23] LABS: Alanine Aminotransferase 15 U/L (12-78); Albumin Level 4.8 g/dl (3.5-5.0); Albumin/Globulin Ratio 1.7 (1.1-1.8); Alkaline Phosphatase 67 U/L (38-126); Aspartate Amino Transferase 23 U/L (14-36); Bilirubin,Total 0.4 mg/dl (0.2-1.3); Blood Urea Nitrogen 15 mg/dl (7-17); Calcium 9.8 mg/dl (8.4-10.2); Carbon Dioxide 23 mmol/L (22.0-30.0); Chloride 109 mmol/L (98-107); Creatinine Clearance Estimated 87 mL/min (50-200); Estimated Glomerular Filt Rate 69 ml/min (>60); GFR (African American) 83 ML/MIN (>60); Globulin 2.9 g/dL (1.3-3.2); Glucose 118 mg/dl (74-100); Sodium 140 mmol/L (136-145); Total Protein,Serum 7.7 g/dl (6.3-8.2)
[2024-06-27 12:33] LABS: HCG Qualitative, Serum Negative (Negative)
[2024-06-27 12:34] LABS: Basophils % 0.3 % (0.1-2.0); Eosinophils # 0.1 Kmm3 (0.0-0.4); Eosinophils % 0.7 % (0.1-12.0); Hematocrit 41.5 % (37.0-47.0); Hemoglobin 13.6 g/dL (12.2-16.2); Immature Granulocytes # 0.01 10^3uL; Immature Granulocytes % 0.1 %; Lymphocytes # 2.8 K/mm3 (0.7-4.5); Lymphocytes % 39.7 % (10-50); Mean Corpuscular HGB Conc 32.8 g/dL (31.8-35.4); Mean Corpuscular Hemoglobin 30.1 pg (27.0-31.2); Mean Corpuscular Volume 91.8 fl (81-99); Mean Platelet Volume 11.1 fl (7.4-10.4); Monocytes # 0.5 K/mm3 (0.1-1.0); Monocytes % 7.1 % (1.7-9.3); Neutrophils # 3.7 K/mm3 (1.8-7.8); Neutrophils % 52.1 % (37.0-80.0); Nucleated Red Blood Cells # 0 10^3/uL; Nucleated Red Blood Cells % 0 %; Platelet Count 102 K/mm3 (142-424); Red Blood Count 4.52 M/mm3 (4.20-5.40); Red Cell Distribution Width 11.9 % (11.5-17.5); Red Cell Distribution Width-SD 40.1 fL; White Blood Count 7.2 K/mm3 (4.8-10.8)
[2024-06-27 12:48] LABS: Microscopic, Urine URINE MICROSCOPIC (MICROSCOPIC)
[2024-06-27 12:50] LABS: Appearance,Urine CLOUDY (Clear); Bilirubin,Urine Negative (Negative); Blood, Urine Negative (Negative); Color,Urine YELLOW (Yellow); Glucose,Urine (UA) Negative (Negative); Ketones,Urine Negative (Negative); Leukocyte Esterase,Urine Negative (Negative); Nitrate,Urine Negative (Negative); Protein,Urine Negative (Negative); Specific Gravity, Urine 1.015 (1.005-1.030); Urobilinogen,Urine 0.2 EU/dl (0.2)
--- NOTE | 2024-06-27 13:00 | PC.NURSE ---
patient back in room at this time.
[2024-06-27 13:01] LABS: Amorphous Sediment,Urine 1+ /lpf; Bacteria,Urine 1+ /lpf
--- NOTE | 2024-06-27 13:37 | HMH.EDGENADL ---
Discharge Plan Disposition Patient Disposition: Home, Self-Care Condition: Good Prescriptions Prescriptions: No Action zonisamide 100 mg capsule 100 mg PO ONCE Qty: 360 3RF Rx Instructions: Take 4 capsules at night ibuprofen [ibuprofen] 600 mg tablet 600 mg PO Q6HP PRN (Reason: Mild Pain) Qty: 30 0RF Referrals Follow up/Referrals: Ilia Sutton MD [Primary Care Provider] - See instructions Activity Restrictions/Add. Instructions Additional Instructions/Restrictions: You were evaluated in the emergency department today. Please take Tylenol ibuprofen as needed for pain. Follow-up closely with primary care as well as with your neurologist. Return to the emergency department for new or worsening symptoms Clinical Impressions Clinical Impression: Fall, Epistaxis, Closed head injury, Neck strain Instructions Patient Instructions: DI for Concussion, DI for Whiplash, How to Prevent Falls Print Language Print Language: Indian Discharge ED Provider: Nhung Palmer General Adult HPI General Chief complaint: Fall Stated complaint: fall/seziure Time Seen by Provider: 06/27/24 11:30 Mode of Arrival: Wheelchair Source of Information: Parent(s) Description of Symptoms (Recalled from ER Triage Doc. by RN): parent states patient was out feeding chickens when she fell and hit her face on the water bowel and now has bloody nose. parent states she has a history of seizures but unsure if that is what happened. History of Present Illness HPI narrative: This patient is a 43-year-old female with a history of developmental delay, autism, seizure disorder on zonisamide presenting to the emergency department for evaluation with concern for fall. According to the patient's mother, she is not sure if the patient had a seizure and fell or if she just fell and hit her head and that might be what happened. She states that it does not seem typical of her usual seizures because she was alert upon getting to her. Patient was carrying a jug of chicken feed when she apparently fell. Mom came upon her lying on the ground with blood coming from her nose and descriptive chin. The patient was alert and crying. Mom states this is not usual for her if she had had a seizure because usually she has generalized tonic-clonic seizures and is postictal afterward, however she was not postictal at this time. She has been acting fine since then with the exception of holding her nose and crying. Patient currently denies any concerns or complaints. History is limited secondary to her developmental delay and autism. Related Data Previous Rx's ?Medication ?Instructions ?Recorded ibuprofen 600 mg tablet 600 mg PO Q6HP PRN Mild Pain #30 02/02/22 tabs zonisamide 100 mg capsule 100 mg PO ONCE SEIZURES #360 caps 06/03/24 Allergies Allergy/AdvReac Type Severity Reaction Status Date / Time No Known Allergies Allergy Verified 06/03/24 10:07 [facility] Disclaimer: The information contained in this section may have been updated after the patient was seen, as this information can be updated by other users. Medical History Seizure History of seizure Surgical History No history of previous surgery Family History Other Heart attack Hypertension Kidney disease Social History Smoking Status: Never smoker alcohol intake: never substance use type: denies use current occupational status: other details: Autistic Travel in the last 8 weeks?: None household members: family housing: house marital status: single Have you lived/traveled outside US in past 30 days?: No Contact w/someone who lives/traveled outside US past 30 days?: No Exposure to someone with infectious disease in past 14 days?: No Do you have a fever (greater than 100.4 F or 38 C)?: No Have you tested positive for COVID-19?: No Exposed to someone with COVID-19 in past 14 days?: No Do you have a sore throat?: No Do you have a cough?: No Do you have any weakness?: No Do you have any diarrhea?: No Are you experiencing any unusual bleeding?: No Do you have any muscle aches/pain?: No Do you have any abdominal pain?: No Are you experiencing loss of taste or smell?: No ROS Obtained: Yes All systems reviewed & no additional complaints except as documented Physical Exam General General appearance: alert and in no apparent distress Head Head exam: atraumatic and normocephalic Eye Eye exam: Present normal appearance, PERRL and EOMI ENT ENT exam: Present normal oropharynx, mucous membranes moist, normal external ear exam and other (Dried blood in both nares with no active bleeding, no step-offs or deformities. No septal hematoma) Neck Neck exam: Present normal inspection, full ROM and trachea midline; Absent tenderness Chest Chest inspection: Present normal inspection and symmetric chest wall rise; Absent tenderness Respiratory Respiratory exam: Present normal lung sounds bilaterally; Absent respiratory distress, wheezes, stridor or accessory muscle use Cardiovascular Cardiovascular exam: Present regular rate and normal rhythm Abdominal Exam Abdominal exam: Present soft; Absent distention, tenderness or guarding Extremities Exam Extremities exam: Present normal inspection, full ROM and normal capillary refill; Absent tenderness or edema Back Exam Back exam: Present normal inspection and full ROM; Absent tenderness Neurological Exam Neurological exam: Present alert, CN II-XII intact, normal gait and other (At her neurologic baseline); Absent motor sensory deficit Psychiatric Psychiatric exam: Present normal affect and normal mood Skin Skin exam: Present warm and dry Medical Decision Making Medical Records Medical records reviewed: Yes I reviewed the patient's medical records. Screening: Per USPSTF and CDC recommendations, given the prevalence of disease in our region, it is our hospital?s policy to screen for HIV and viral Hepatitis for all patients aged 18 and over and those with ongoing risk factors. Herber Inquiry Pt receiving controlled substance: No Vital Signs: 06/27/24 11:33 06/27/24 12:00 06/27/24 12:30 Temperature 98.5 F Temperature Source Oral Pulse Rate 78 82 Pulse Rate [Right Radial] 86 Respiratory Rate 16 14 16 Blood Pressure 103/68 L 99/66 L Blood Pressure [Left Radial Artery] 121/88 Blood Pressure Mean [Left Radial Artery] 99 Blood Pressure Source Blood Pressure Source [Left Radial Artery] Automatic Cuff Blood Pressure Position Blood Pressure Position [Left Radial Artery] Supine 02 Sat by Pulse Oximetry 97 99 99 Oxygen Delivery Method Room Air 06/27/24 13:01 06/27/24 13:30 06/27/24 14:00 Temperature Temperature Source Pulse Rate 77 66 73 Pulse Rate [Right Radial] Respiratory Rate 16 16 17 Blood Pressure 104/65 L 104/70 L Blood Pressure [Left Radial Artery] Blood Pressure Mean [Left Radial Artery] Blood Pressure Source Blood Pressure Source [Left Radial Artery] Blood Pressure Position Blood Pressure Position [Left Radial Artery] 02 Sat by Pulse Oximetry 98 97 97 Oxygen Delivery Method 06/27/24 14:30 06/27/24 14:42 Temperature 98.7 F Temperature Source Oral Pulse Rate 78 77 Pulse Rate [Right Radial] Respiratory Rate 17 15 Blood Pressure 92/68 L 92/68 L Blood Pressure [Left Radial Artery] Blood Pressure Mean [Left Radial Artery] Blood Pressure Source Automatic Cuff Blood Pressure Source [Left Radial Artery] Blood Pressure Position Supine Blood Pressure Position [Left Radial Artery] 02 Sat by Pulse Oximetry 97 Oxygen Delivery Method Room Air Lab Data Lab results reviewed: Yes I reviewed the patient's lab results. Lab Results 06/27/24 11:30: WBC 7.2, RBC 4.52, Hgb 13.6, Hct 41.5, MCV 91.8, MCH 30.1, MCHC 32.8, RDW 11.9, Plt Count 102 L, MPV 11.1 H, Neut % (Auto) 52.1, Lymph % (Auto) 39.7, [place] % (Auto) 7.1, Eos % (Auto) 0.7, Baso % (Auto) 0.3, Neut # (Auto) 3.7, Lymph # (Auto) 2.8, [place] # (Auto) 0.5, Eos # (Auto) 0.1, Baso # (Auto) 0.0, Sodium 140, Potassium 4.0, Chloride 109 H, Carbon Dioxide 23, Anion Gap 12.0, BUN 15, Creatinine 0.90, Estimated Creat Clear 87, Estimated GFR 69, Est GFR ( Amer) 83, Glucose 118 H, Calcium 9.8, Total Bilirubin 0.4, AST 23, ALT 15, Alkaline Phosphatase 67, Total Protein 7.7, Albumin 4.8, Globulin 2.9, Albumin/Globulin Ratio 1.7, Serum HCG, Qual Negative 06/27/24 12:40: Urine Color Yellow, Urine Appearance Cloudy, Urine pH 7.0, Ur Specific [place] 1.015, Urine Protein Negative, Urine Glucose (UA) Negative, Urine Ketones Negative, Urine Blood Negative, Urine Nitrate Negative, Urine Bilirubin Negative, Urine Urobilinogen 0.2, Ur Leukocyte Esterase Negative, Urine RBC None, Urine WBC None, Ur Squamous Epith Cells 5-10, Amorphous Sediment 1+, Urine Bacteria 1+ 06/27/24 11:30 06/27/24 11:30 Orders (Tests/Meds): ED MEDICATIONS Discontinued Medications Generic Name Dose Route Start Last Admin Trade Name Penny PRN Reason Stop Dose Admin Ketorolac Tromethamine 15 mg 06/27/24 14:35 06/27/24 14:41 Ketorolac 30mg/Ml Vial IV 06/27/24 14:36 15 mg ONCE ONE Administration Lidocaine 1 each 06/27/24 14:35 06/27/24 14:41 Lidocaine 5% Transdermal Patch TD 06/27/24 14:36 1 each ONCE ONE Administration ORDERS Category Date Time Status CT cervical spine wo con Stat Cat Scan 06/27/24 12:[address] facial bones wo con Stat Cat Scan 06/27/24 12:[address] head/brain wo con Stat Cat Scan 06/27/24 12:16 Completed CMP [Comprehensive Metabolic Panel] Stat Lab 06/27/24 11:30 Completed Complete Blood Count Auto Diff Stat Lab 06/27/24 11:30 Completed HIV Combo Stat Lab 06/27/24 11:30 Received Hepatitis C Ab Qual. W/ RFX Stat Lab 06/27/24 11:30 Received Serum [HCG Qualitative, Serum] Stat Lab 06/27/24 11:30 Completed UA [Urinalysis and Microscopic] Stat Lab 06/27/24 12:40 Completed ECG Data Tracing #1: I reviewed this ECG and interpreted as documented below: Normal sinus rhythm with sinus arrhythmia with a ventricular of [address] changes concerning for ischemia. Normal interval ECG initial impression date: 06/27/24 ECG initial impression time: 11:40 Medical Decision Narrative: In summary, this patient is a 43-year-old female presenting to the Emergency Department for evaluation of fall versus seizure with fall. Differential diagnoses considered include but are not limited to seizure, fall with closed head injury, intracranial hemorrhage, skull fracture, facial fracture, C-spine fracture. Ruling out the most morbid conditions drove assessment. It should be noted patient's history includes seizure disorder, autism which may or may not be at goal therapy. This complicates all aspects of care by increasing patient's risk for morbidity. I reviewed patient's past medical records and noted previous evaluations by neurology for management in the past. On exam, the patient is sitting upright in no acute distress. She is at her neurologic baseline. She has dried blood in both nostrils but no active bleeding at this time. No other traumatic injuries noted on exam. Workup included CBC, CMP, magnesium, test, CT head, CT face, CT C-spine. I independently interpreted CT scan prior to the radiologist read and noted no fracture, no intracranial hemorrhage. Please see their read for final interpretation. Labs were obtained that demonstrated reassuring CBC with no significant leukocytosis or anemia, reassuring chemistry, reassuring urinalysis. On reassessment, patient is resting comfortably in no acute distress with no recurrence of seizure activity. She remains to be at her neurologic baseline and is neurologically intact. No bleeding from the nose. She does complain of some right-sided neck pain now with some muscle hypertonicity, I feel she likely has strain from the fall. No fracture noted on CT. She was treated with IV toradol and topical lidoderm patch. Ultimately, I feel she likely had a fall with closed head injury and neck strain as a result of this. She is at her neurologic baseline and I feel that she is appropriate for discharge home with close follow-up with her primary care provider as well as with her neurologist for evaluation management of her chronic seizures. Strict return precautions were given and the patient was discharged after all questions were answered. Critical Care Critical Care Time Critical Care Time: No
--- NOTE | 2024-06-27 14:31 | PC.NURSE ---
called RAD for prelims on pt scans
[2024-06-27] MEDS: KETOROLAC 30MG/ML VIAL 15 MG IV (14:41)
[2024-06-27] MEDS: LIDOCAINE 5% TRANSDERMAL PATCH 1 EACH TD (14:41)
[2024-06-27 19:49] LABS: HIV Combo NEGATIVE (Negative)
[2024-06-27 19:59] LABS: Hepatitis C Ab Qual. W/ RFX NEGATIVE (Negative)
== END 2024-06-27 14:53 | disposition home or self-care (01) ==
PROVIDERS: Emergency Provider Emergency Medicine; PCP Family Medicine
DX: S09.90XA Unspecified injury of head, initial encounter (principal); S16.1XXA Strain of muscle, fascia and tendon at neck level, initial encounter; R04.0 Epistaxis; I49.9 Cardiac arrhythmia, unspecified; W19.XXXA Unspecified fall, initial encounter; Z11.59 Encounter for screening for other viral diseases; Z11.4 Encounter for screening for human immunodeficiency virus [HIV]
CPT/HCPCS: 70450; 70486; 72125; 80053; 81001; 84703; 85025; 86803; 87389; 93005; 96374; 99285; J1885

== ENCOUNTER 2024-09-24 13:10 | Emergency (ER) | payer MEDICARE, OTHER, SELFPAY ==
[2024-09-24 13:15] VITALS: BP 134/73; PULSE 73; RESP 15; TEMP 36.7; O2SAT 98; BMI 21.4
--- NOTE | 2024-09-24 13:25 | ED_ITS ---
Discharge Plan Disposition Patient Disposition: Home, Self-Care Prescriptions Prescriptions: No Action zonisamide 100 mg capsule 100 mg PO ONCE Qty: 360 3RF Rx Instructions: Take 4 capsules at night ibuprofen [ibuprofen] 600 mg tablet 600 mg PO Q6HP PRN (Reason: Mild Pain) Qty: 30 0RF Activity Restrictions/Add. Instructions Additional Instructions/Restrictions: Increase fluid and rest. If any more problems or concerns please return to the ED Clinical Impressions Clinical Impression: Seizure Instructions Patient Instructions: DI for Seizure Disorder -- Adult Print Language Print Language: Maltese Discharge ED Provider: Raoul Dumont General Adult HPI <Shikhamonet Tomlinevyoscar (ED), [employer] - Last Filed: 09/24/24 14:36> General Chief complaint: Seizure Stated complaint: Seizure Time Seen by Provider: 09/24/24 13:18 Mode of Arrival: EMS Source of Information: Parent(s) and EMS Description of Symptoms (Recalled from ER Triage Doc. by RN): pt had a seizure in the yard lasting about two minutes. her mom was unable to get her up. has not had a seizure in about 1.5 years. has autism. pt is currently sleeping but responds to verbal stimuli History of Present Illness HPI narrative: 44-year-old female presents to the ED today for a seizure. EMS arrived after she had the seizure. She was postictal and not responsive. Mom initially wanted her to stay home and not come EMS but EMS encouraged mom to let them bring her to the ED because she was so postictal. Patient went out to feed the chickens by herself and had a seizure. Mom states that she should not of let her go alone. Patient arrived to the ER in a postictal state. She did open her eyes for me and tell me her name. She did not know the date or time. She is not alert to situation at this time. Mom arrives to the ER telling us that patient is on zonisamide every night. She has not taken it today because she takes it at night. Mom blames herself as she was not with her. Mom states the seizure did not last very long. She has not had a seizure in a year and a half. Patient is tearful as well as mother is tearful. Related Data Previous Rx's ?Medication ?Instructions ?Recorded ibuprofen 600 mg tablet 600 mg PO Q6HP PRN Mild Pain #30 02/02/22 tabs zonisamide 100 mg capsule 100 mg PO ONCE SEIZURES #360 caps 06/03/24 Allergies Allergy/AdvReac Type Severity Reaction Status Date / Time No Known Allergies Allergy Verified 06/03/24 10:07 PFSH <Shikha Boston (ED), [employer] - Last Filed: 09/24/24 14:36> PFSH Disclaimer: The information contained in this section may have been updated after the patient was seen, as this information can be updated by other users. Medical History Seizure History of seizure Surgical History No history of previous surgery Family History Other Heart attack Hypertension Kidney disease Social History Smoking Status: Never smoker alcohol intake: never substance use type: denies use current occupational status: other details: Autistic Travel in the last 8 weeks?: None household members: family housing: house marital status: single Have you lived/traveled outside US in past 30 days?: No Contact w/someone who lives/traveled outside US past 30 days?: No Exposure to someone with infectious disease in past 14 days?: No Do you have a fever (greater than 100.4 F or 38 C)?: No Have you tested positive for COVID-19?: No Exposed to someone with COVID-19 in past 14 days?: No Do you have a sore throat?: No Do you have a cough?: No Do you have any weakness?: No Do you have any diarrhea?: No Are you experiencing any unusual bleeding?: No Do you have any muscle aches/pain?: No Do you have any abdominal pain?: No Are you experiencing loss of taste or smell?: No <Shikha Boston (ED), [employer] - Last Filed: 09/24/24 14:36> ROS Obtained: Yes Systems reviewed as appropriate & no additional complaints except as documented Constitutional Constitutional: Reports as per HPI Physical Exam <Shikha Boston (ED), [employer] - Last Filed: 09/24/24 14:36> General General appearance: alert Head Head exam: normocephalic Eye Eye exam: Present PERRL ENT ENT exam: Present normal oropharynx and mucous membranes moist Neck Neck exam: Present full ROM and trachea midline Respiratory Respiratory exam: Present normal lung sounds bilaterally Cardiovascular Cardiovascular exam: Present regular rate, normal rhythm, normal heart sounds, +S1 and +S2 Abdominal Exam Abdominal exam: Present soft and normal bowel sounds Extremities Exam Extremities exam: Present full ROM Neurological Exam Neurological exam: Present alert and oriented X3 Skin Skin exam: Present warm and dry Medical Decision Making <Shikha Boston (ED), [employer] - Last Filed: 09/24/24 14:36> Medical Records Screening: Per USPSTF and CDC recommendations, given the prevalence of disease in our region, it is our hospital?s policy to screen for HIV and viral Hepatitis for all patients aged 18 and over and those with ongoing risk factors. Herber Inquiry Pt receiving controlled substance: No Herber was queried for this patient: No Vital Signs: 09/24/24 13:15 09/24/24 14:00 09/24/24 14:30 Temperature 98.1 F Temperature Source Axillary Pulse Rate 77 61 Pulse Rate [Right] 73 Respiratory Rate 15 14 15 Blood Pressure 116/64 109/72 L Blood Pressure [Right Arm] 134/73 Blood Pressure Mean [Right Arm] 93 02 Sat by Pulse Oximetry 98 100 98 Oxygen Delivery Method Room Air 09/24/24 14:55 Temperature 98.4 F Temperature Source Axillary Pulse Rate 81 Pulse Rate [Right] Respiratory Rate 16 Blood Pressure 116/78 Blood Pressure [Right Arm] Blood Pressure Mean [Right Arm] 02 Sat by Pulse Oximetry Oxygen Delivery Method Room Air Lab Data Lab Results 09/24/24 13:15: WBC 6.6, RBC 4.09 L, Hgb 12.4, Hct 36.8 L, MCV 90.0, MCH 30.3, MCHC 33.7, RDW 11.9, Plt Count 177, MPV 10.3, Neut % (Auto) 58.7, Lymph % (Auto) 31.8, [place] % (Auto) 8.5, Eos % (Auto) 0.6, Baso % (Auto) 0.2, Neut # (Auto) 3.9, Lymph # (Auto) 2.1, [place] # (Auto) 0.6, Eos # (Auto) 0.0, Baso # (Auto) 0.0, Sodium 137, Potassium 4.0, Chloride 109 H, Carbon Dioxide 21 L, Anion Gap 11.0, BUN 14, Creatinine 0.80, Estimated Creat Clear 81, Estimated GFR 78, Est GFR ( Amer) 95, Glucose 124 H, Lactate 1.6, Calcium 8.8, Magnesium 2.0, Total Bilirubin 0.2, AST 24, ALT 13, Alkaline Phosphatase 68, Troponin I < 0.01, Total Protein 7.3, Albumin 3.5, Globulin 3.8 H, Albumin/Globulin Ratio 0.9 L, Lipase 69, TSH 3.36 09/24/24 13:15 09/24/24 13:15 Orders (Tests/Meds): ED MEDICATIONS Discontinued Medications Generic Name Dose Route Start Last Admin Trade Name Freq PRN Reason Stop Dose Admin Sodium Chloride 1,000 mls @ 999 mls/hr 09/24/24 13:20 09/24/24 13:35 Sod Chlor 0.9% 1000ml Bag IV 09/24/24 14:20 999 mls/hr .Q1H1M ONE Administration ORDERS Category Date Time Status CBC [Complete Blood Count Auto Diff] Stat Lab 09/24/24 13:15 Completed Comprehensive Metabolic Panel Stat Lab 09/24/24 13:15 Completed Lactic Acid Stat Lab 09/24/24 13:15 Completed Lipase Stat Lab 09/24/24 13:15 Completed Magnesium Stat Lab 09/24/24 13:15 Completed TSH [Thyroid Stimulating Hormone] Stat Lab 09/24/24 13:15 Completed Trop I [Troponin I] Stat Lab 09/24/24 13:15 Completed Medical Decision Narrative: patient is a 44-year-old female presenting to the emergency department for evaluation of seizure. Patient is hemodynamically stable and nontoxic-appearing upon arrival, afebrile. Differential diagnosis includes seizure activity, syncope episode, among others. Workup will be conducted with hematologic labs. Considered imaging but seizures are common for patient. Initial inventions include crystalloid bolus. Initial workup reviewed by or hematologic labs are unremarkable. Imaging considered but not completed as patient had no trauma. Patient has been stable and has normal labs. Discussed return precautions with mom. Patient is more alert and oriented at this time. She is still fatigued but alert and oriented. Patient is safe for discharge home. <Raoul Dumont MD - Last Filed: 09/24/24 17:58> Vital Signs: 09/24/24 13:15 09/24/24 14:00 09/24/24 14:30 Temperature 98.1 F Temperature Source Axillary Pulse Rate 77 61 Pulse Rate [Right] 73 Respiratory Rate 15 14 15 Blood Pressure 116/64 109/72 L Blood Pressure [Right Arm] 134/73 Blood Pressure Mean [Right Arm] 93 02 Sat by Pulse Oximetry 98 100 98 Oxygen Delivery Method Room Air 09/24/24 14:55 Temperature 98.4 F Temperature Source Axillary Pulse Rate 81 Pulse Rate [Right] Respiratory Rate 16 Blood Pressure 116/78 Blood Pressure [Right Arm] Blood Pressure Mean [Right Arm] 02 Sat by Pulse Oximetry Oxygen Delivery Method Room Air Lab Data Lab Results 09/24/24 13:15: WBC 6.6, RBC 4.09 L, Hgb 12.4, Hct 36.8 L, MCV 90.0, MCH 30.3, MCHC 33.7, RDW 11.9, Plt Count 177, MPV 10.3, Neut % (Auto) 58.7, Lymph % (Auto) 31.8, [place] % (Auto) 8.5, Eos % (Auto) 0.6, Baso % (Auto) 0.2, Neut # (Auto) 3.9, Lymph # (Auto) 2.1, [place] # (Auto) 0.6, Eos # (Auto) 0.0, Baso # (Auto) 0.0, Sodium 137, Potassium 4.0, Chloride 109 H, Carbon Dioxide 21 L, Anion Gap 11.0, BUN 14, Creatinine 0.80, Estimated Creat Clear 81, Estimated GFR 78, Est GFR ( Amer) 95, Glucose 124 H, Lactate 1.6, Calcium 8.8, Magnesium 2.0, Total Bilirubin 0.2, AST 24, ALT 13, Alkaline Phosphatase 68, Troponin I < 0.01, Total Protein 7.3, Albumin 3.5, Globulin 3.8 H, Albumin/Globulin Ratio 0.9 L, Lipase 69, TSH 3.36 Orders (Tests/Meds): ED MEDICATIONS Discontinued Medications Generic Name Dose Route Start Last Admin Trade Name Freq PRN Reason Stop Dose Admin Sodium Chloride 1,000 mls @ 999 mls/hr 09/24/24 13:20 09/24/24 13:35 Sod Chlor 0.9% 1000ml Bag IV 09/24/24 14:20 999 mls/hr .Q1H1M ONE Administration ORDERS Category Date Time Status CBC [Complete Blood Count Auto Diff] Stat Lab 09/24/24 13:15 Completed Comprehensive Metabolic Panel Stat Lab 09/24/24 13:15 Completed Lactic Acid Stat Lab 09/24/24 13:15 Completed Lipase Stat Lab 09/24/24 13:15 Completed Magnesium Stat Lab 09/24/24 13:15 Completed TSH [Thyroid Stimulating Hormone] Stat Lab 09/24/24 13:15 Completed Trop I [Troponin I] Stat Lab 09/24/24 13:15 Completed Medical Decision Narrative: patient is a 44-year-old female presenting to the emergency department for evaluation of seizure. Patient is hemodynamically stable and nontoxic-appearing upon arrival, afebrile. Differential diagnosis includes seizure activity, syncope episode, among others. Workup will be conducted with hematologic labs. Considered imaging but seizures are common for patient. Initial inventions include crystalloid bolus. Initial workup reviewed by me hematologic labs are unremarkable. Imaging considered but not completed as patient had no trauma. Patient has been stable and has normal labs. Discussed return precautions with mom. Patient is more alert and oriented at this time. She is still fatigued but alert and oriented. Patient is safe for discharge home. I was consulted by the LUCINDA, and we discussed the complexity of the problems being addressed. I approve the treatment and management plan for this patient's care in the emergency department, thus performing a substantive portion of the medical decision making. Patient reportedly had no trauma and did not fall or hit her head. CT head was considered, but given patient has a history of seizures and no evidence of trauma, it is felt that the radiation exposure outweighs the potential benefits at this time. Raoul Dumont MD Critical Care <Shikha Boston (ED), [employer] - Last Filed: 09/24/24 14:36> Critical Care Time Critical Care Time: No
[2024-09-24 13:28] LABS: Hematocrit 36.8 % (37.0-47.0); Hemoglobin 12.4 g/dL (12.2-16.2); Immature Granulocytes % 0.2 %; Mean Corpuscular HGB Conc 33.7 g/dL (31.8-35.4); Mean Corpuscular Hemoglobin 30.3 pg (27.0-31.2); Mean Corpuscular Volume 90.0 fl (81-99); Nucleated Red Blood Cells % 0 %; Platelet Count 177 K/mm3 (142-424); Red Blood Count 4.09 M/mm3 (4.20-5.40); Red Cell Distribution Width-SD 39.6 fL; White Blood Count 6.6 K/mm3 (4.8-10.8)
--- OUTSIDE RECORDS SUMMARY | 2024-09-24 13:29 | XMS_ITS | Clinical Summary ---
Author Organization [facility] Address [address] [place] [address] Care Team Providers Care Chef Kitchen Manager Name Role Phone Ilia Sutton MD Primary Care Provider + Allergies No known active allergies Medications zonisamide (ZONEGRAN) 100 MG capsuleIndicati ons:Seizure disorder Take 4 capsules by mouth Daily. 120 capsule 3 04/24/2024 Active Active Problems Problem Noted Date Diagnosed Date Seizure disorder 11/02/2023 Overview (11/02/2023): Diagnosed at age 11 Managed with Zonegran Family History Medical History Relation Name Comments Heart attack Maternal Aunt Kidney disease Maternal Grandmother Hyperlipidemia Mother Hypertension Mother Relation Name Status Comments Maternal Aunt Maternal Grandmother Mother Alive Social History Tobacco Use Types Packs/Day Years Used Date Smoking Tobacco: Never Smokeless Tobacco: Never Tobacco Cessation:Counseling Given: Not Answered Alcohol Use Standard Drinks/Week Comments Yes 0 (1 standard drink = 0.6 oz pur e alcohol) Abuse Screen Answer Date Recorded Unsafe at Home or Work/School Not on file Feels Threatened by Someone? Not on file 06/2023 Does Anyone Keep You from Co ntacting Others or Doint Things Outside the Home? Not on file 10/26/2023 Physical Sign of Abuse Present Not on file 0 10/26/2023 Housing Stability Answer Date Recorded Current Living Arrangements Not on file 06/2023 Potentially Unsafe Housing Conditions Not on adelina e 10/26/2023 Family and Community Support Answer Lucio e Recorded Help with Day-to-Day Activities Not on file 10/26/2023 Lonely or Isolated Not on file 10/26/2023 Employment Answer Date Recorded Do you want help finding or keeping work or a andrew b? Not on file 10/26/2023 Disabilities Answer Date Recorded Concentrating, Remembering, or Making Decisions Difficulty Not on file 10/26/2023 Doing Errands Independently Difficulty Not on fi le 10/26/2023 Education Answer Date Recorded Help with school or training? Not on file Preferred Language Not on file 10/26/2023 Comments Unknown Sex and Gender Information Value Date Recorded Sex Assigned at Not on file Legal Sex Female 10:09 AM EDT Gender Identity Not on file Sexual Orientation Not on file Last Filed Vital Signs Vital Sign Reading Time Taken Comments Blood Pressure 110/70 11/02/2023 9:34 AM EDT Pulse 76 11/02/2023 9:34 AM EDT Temperature 36.3 C (97.3 F) 11/02/2023 9:34 AM EDT Respiratory Rate 20 11/02/2023 9:34 AM EDT Oxygen Saturation 99% 11/02/2023 9:34 AM EDT Inhaled Oxygen Concentration - - Weight 64 kg (141 lb) 11/02/2023 9:34 AM EDT Height 167.6 cm (5' 6 ) 11/02/2023 9:34 AM EDT Body Mass Index 22.76 11/02/2023 9:34 AM EDT Plan of Treatment Upcoming Encounters Date Type Department Care Team (Late st Contact Info) Description 10/22/2024 8:30 AM EDT Office Visit [facility] [address] [facility] [place] [place] [address] Ilia Sutton MD [address] [facility] [place] [place] [address] Health Maintenance Due Date Last Done Comments Annual Gynecologic Pelvic an d Breast Exam 1981 TDAP/TD VACCINES (1 - Tdap) 2000 PAP SMEAR 2002 MAMMOGRAM 2021 COVID-19 Vaccine ( - 2023-2 5 season) 2023 ANNUAL WELLNESS VISIT 11/02/2023 HEPATITIS C SCREENING 11/02/2023 INFLUENZA VACCINE 11/20/2024 Pneumococcal Vaccine 0-49 Aged Out No longer eligible based on patient's age to complete this topic Procedures Procedure Name Priority Date/Time Associated Diagnosis Comments SCANNED EKG 06/27/2024 SCANNED - LABS 06/27/2024 SCANNED - LABS 06/27/2024 SCANNED - IMAGING 06/27/2024 from Last 3 Months Results * ECG Scan (06/27/2024) Ilia Sutton MD ECG ORDERABLES Final Re sult * IMAGING SCANNED (06/27/2024) Anatomical Region Laterality Modality Radiographic Brandi ging Ilia Sutton MD IMG DIAGNOSTIC IMAGING O RDERABLES Final Result * LABS SCANNED (06/27/2024) Only the most recent of2 resultswithin the time period is included. lIia Sutton MD LAB BLOOD ORDERABLES Fin al Result from Last 3 Months Insurance MEDICARE A & B [facility] MEDICAID [facility] Advance Directives Documents on File Type Date Recorded Patient Supervisor [employer] Expl anation [employer] RECORDS - SCAN 12/26/2023 10:12 AM [employer], [facility], 04/17/2014 Care Teams Chef Kitchen Manager Relationship Specialty Start Date End Date Ilia Sutton MD [address] [place] [address] PCP - General Family Medicine 11/02/23
[2024-09-24] MEDS: 0.9 % SODIUM CHLORIDE 1000ML 1,000 ML 999 ML IV (13:35)
[2024-09-24 13:47] LABS: Albumin Level 3.5 g/dl (3.5-5.0); Chloride 109 mmol/L (98-107); Potassium 4.0 mmoL/L (3.5-5.1); Sodium 137 mmol/L (136-145)
[2024-09-24 13:50] LABS: Alanine Aminotransferase 13 U/L (12-78); Albumin/Globulin Ratio 0.9 (1.1-1.8); Alkaline Phosphatase 68 U/L (38-126); Anion Gap 11.0 mEq/L (5-15); Aspartate Amino Transferase 24 U/L (14-36); Bilirubin,Total 0.2 mg/dl (0.2-1.3); Blood Urea Nitrogen 14 mg/dl (7-17); Calcium 8.8 mg/dl (8.4-10.2); Carbon Dioxide 21 mmol/L (22.0-30.0); Creatinine Clearance Estimated 81 mL/min (50-200); Creatinine,Serum 0.80 mg/dl (0.52-1.04); Estimated Glomerular Filt Rate 78 ml/min (>60); GFR (African American) 95 ML/MIN (>60); Globulin 3.8 g/dL (1.3-3.2); Glucose 124 mg/dl (74-100); Lipase 69 U/L (23-300); Total Protein,Serum 7.3 g/dl (6.3-8.2)
[2024-09-24 13:51] LABS: Magnesium 2.0 mg/dl (1.6-2.3)
[2024-09-24 14:00] VITALS: BP 116/64; PULSE 77; RESP 14; O2SAT 100
[2024-09-24 14:15] LABS: Troponin I < 0.01 ng/ml (0.00-0.034)
[2024-09-24 14:30] VITALS: BP 109/72; PULSE 61; RESP 15; O2SAT 98
[2024-09-24 14:55] VITALS: BP 116/78; PULSE 81; RESP 16; TEMP 36.9; O2SAT 98
[2024-09-24 15:02] LABS: Thyroid Stimulating Hormone 3.36 uIU/mL (0.465-4.68)
== END 2024-09-24 14:55 | disposition home or self-care (01) ==
PROVIDERS: Nurse Practitioner; Emergency Provider Student in an Organized Health Care Education/Training Program
DX: G40.909 Epilepsy, unspecified, not intractable, without status epilepticus (principal); R62.50 Unspecified lack of expected normal physiological development in childhood
CPT/HCPCS: 80053; 83605; 83690; 83735; 84443; 84484; 85025; 96360; 99285; J7030